=== PATIENT | male | born 1960 | race Caucasian/White ===

== ENCOUNTER 2023-12-07 12:31 | Inpatient (IN) | payer OTHER ==
[2023-12-07] MEDS ORDERED: NA CHLORIDE 0.9% 1,000 ML ONE ×2 (13:01→15:19)
[2023-12-07] MEDS ORDERED: NA CHLORIDE 0.9% 500 ML ONE (13:02)
[2023-12-07 13:18] LABS: Absolute Lymphocytes (CBC) 1.6 K/uL (0.7-4.9); Hematocrit 32.7 % (39.6-49.0); Lymphocytes % 18.3 % (15.3-44.8); MPV 7.6 fL (7.6-11.3); Platelets 178 thou/uL (152-406); Protime INR 1.29; RBC Red Blood Cell Count 3.67 M/uL (4.33-5.43)
--- NOTE | 2023-12-07 13:37 | RAD REPORT ---
EXAM DESCRIPTION: Mariam Single View12/07/2023 1:14 pm CLINICAL HISTORY: COUGH COMPARISON: No comparisons TECHNIQUE: Portable AP view of the chest. FINDINGS: The lungs are clear. Small calcified nodules bilaterally, suggestive of granulomas. No pn eumothorax or effusion. The cardiomediastinal contours are unremarkable. IMPRESSION: No acute cardiopulmonary process.
--- NOTE | 2023-12-07 13:42 | RAD REPORT ---
EXAM DESCRIPTION: RAD - Foot Left 3 View - 12/07/2023 1:14 pm CLINICAL HISTORY: Pain;Swelling COMPARISON: No comparisons TECHNIQUE: Left foot, 3 views. FINDINGS: No fracture, dislocation or periosteal reaction. Pronounced focal swelling along the lateral forefoot at the level of the metatarsophalangeal articula tion. Mild dorsal swelling as well. Vascular calcifications. No air or foreign body in the soft tissu es. IMPRESSION: Soft tissue swelling as above, without acute osseous abnormality.
[2023-12-07 13:43] LABS: Albumin 3.8 g/dL (3.4-5.0); Bilirubin Direct 0.2 mg/dL (0-0.2); Bilirubin Indirect, Calculated 0.3 mg/dL (0.2-0.8); Bilirubin Total 0.5 mg/dL (0.2-1.0); C-Reactive Protein 10.4 mg/L (<3.00); Magnesium 1.8 mg/dL (1.6-2.4); Protein, Total 8.5 g/dL (6.4-8.2); Troponin High Sensitivity 19.6 pg/mL (<58.9)
[2023-12-07] MEDS ORDERED: TDAP (DIPHTH,PERTUSS(ACELL),TET VAC) 0.5 ML VIAL IMVAC ONE (15:18)
[2023-12-07] MEDS ORDERED: VANCOMYCIN 1 GM/VIAL ONE (15:18)
[2023-12-07 15:19] LABS: Specific Gravity 1.015 (1.005-1.030); Urine Bacteria None Seen /HPF (<20); Urine Bilirubin NEGATIVE (Negative); Urine Blood Trace (Negative); Urine Clarity Clear (Clear); Urine Color Light-Yellow (Yellow); Urine Glucose NEGATIVE (Negative); Urine Mucus Slight /HPF (None Seen); Urine Protein 1+ (Negative); Urine RBC <5 /HPF (None Seen); Urine Urobilinogen Normal (Normal)
[2023-12-07] MEDS ORDERED: NA CHLORIDE 0.9% 250 ML ONE (15:19)
[2023-12-07] MEDS ORDERED: NA CHLORIDE 0.9% 100 ML ONE (15:19)
[2023-12-07] MEDS ORDERED: PIPERACIL/TAZO 3.375 GM VIAL IV ONE (15:19)
--- NOTE | 2023-12-07 15:27 | EDPHYS ---
Physician Documentation [facility] Name: Francisco Felton Age: 63 yrs Sex: Male : 1960 Arrival Date: 12/07/2023 Time: 12:31 Bed 18 Private MD: Ruthie Mcallister ED Physician Artur Paredes HPI: 12/07 15:07 This 63 yrs old Male presents to ER via Ambulatory with complaints of Wound doc Infection. 15:07 The patient presents with decreased range of motion, pain, that is acute. The doc complaints affect the left foot. Context: The problem was sustained at an unknown location. Onset: The symptoms/episode began/occurred 3 day(s) ago. Modifying factors: The symptoms are alleviated by nothing, the symptoms are aggravated by nothing. Associated signs and symptoms: Pertinent positives: swelling, warmth. Severity of symptoms: At their worst the symptoms were moderate, in the emergency department the symptoms are actually worse. Historical: - Allergies: 12:46 No Known Allergies; db - PMHx: 12:46 Diabetes mellitus; db - Immunization history:: Adult Immunizations unknown, Client reports having NOT received the Covid vaccine. - Social history:: Smoking status: Patient reports the use of cigarette tobacco products, smokes one-half pack cigarettes per day. - Family history:: not pertinent. ROS: 15:07 Constitutional: Negative for fever, chills, and weight loss, Eyes: Negative for injury, doc pain, redness, and discharge, ENT: Negative for injury, pain, and discharge, Neck: Negative for injury, pain, and swelling, Cardiovascular: Negative for chest pain, palpitations, and edema, Respiratory: Negative for shortness of breath, cough, wheezing, and pleuritic chest pain, Abdomen/GI: Negative for abdominal pain, nausea, vomiting, diarrhea, and constipation, Back: Negative for injury and pain, : Negative for injury, bleeding, discharge, and swelling, Neuro: Negative for headache, weakness, numbness, tingling, and seizure, Psych: Negative for depression, anxiety, suicide ideation, homicidal ideation, and hallucinations, Allergy/Immunology: Negative for hives, rash, and allergies, Endocrine: Negative for neck swelling, polydipsia, polyuria, polyphagia, and marked weight changes, Hematologic/Lymphatic: Negative for swollen nodes, abnormal bleeding, and unusual bruising, 15:07 MS/extremity: Positive for decreased range of motion, erythema, pain, swelling, tenderness, warmth, of the plantar aspect of left fifth toe, dorsum of left foot, left fourth toe and Left fifth toenail, Exam: 15:07 Constitutional: This is a well developed, well nourished patient who is awake, alert, doc and in no acute distress. Head/Face: Normocephalic, atraumatic. Eyes: Pupils equal round and reactive to light, extra-ocular motions intact. Lids and lashes normal. Conjunctiva and sclera are non-icteric and not injected. Cornea within normal limits. Periorbital areas with no swelling, redness, or edema. ENT: Nares patent. No nasal discharge, no septal abnormalities noted. Tympanic membranes are normal and external auditory canals are clear. Oropharynx with no redness, swelling, or masses, exudates, or evidence of obstruction, uvula midline. Mucous membranes moist. Neck: Trachea midline, no thyromegaly or masses palpated, and no cervical lymphadenopathy. Supple, full range of motion without nuchal rigidity, or vertebral point tenderness. No Meningismus. Chest/axilla: Normal chest wall appearance and motion. Nontender with no deformity. No lesions are appreciated. Cardiovascular: Regular rate and rhythm with a normal S1 and S2. No gallops, murmurs, or rubs. Normal PMI, no JVD. No pulse deficits. Respiratory: Lungs have equal breath sounds bilaterally, clear to auscultation and percussion. No rales, rhonchi or wheezes noted. No increased work of breathing, no retractions or nasal flaring. Abdomen/GI: Soft, non-tender, with normal bowel sounds. No distension or tympany. No guarding or rebound. No evidence of tenderness throughout. Back: No spinal tenderness. No costovertebral tenderness. Full range of motion. Male : Normal genitalia with no discharge or lesions. Skin: Warm, dry with normal turgor. Normal color with no rashes, no lesions, and no evidence of cellulitis. Neuro: Awake and alert, GCS 15, oriented to person, place, time, and situation. Cranial nerves II-XII grossly intact. Motor strength 5/5 in all extremities. Sensory grossly intact. Cerebellar exam normal. Normal gait. Psych: Awake, alert, with orientation to person, place and time. Behavior, mood, and affect are within normal limits. 15:07 Musculoskeletal/extremity: Extremities: grossly normal except: decreased ROM, erythema, pain, ROM: full active range of motion, full passive range of motion, Circulation is intact in all extremities. decreased sensation, Compartment Syndrome exam of affected extremity: is normal. Weight bearing: able to fully bear weight, without difficulty, DVT Exam: pain, swelling, tenderness, that is moderate, of the left foot, 15:28 ECG was reviewed by the Attending Physician. [facility] Vital Signs: 12:45 BP 187 / 86; Pulse 92; Resp 18; Temp 98.1; Pulse Ox 100% ; Weight 78.02 kg; Height 6 db ft. 6 in. ; 13:00 BP 156 / 85; Pulse 88; Resp 22; Pulse Ox 99% on R/A; me1 14:00 BP 175 / 86; Pulse 86; Resp 23; Pulse Ox 99% on R/A; me1 15:00 BP 143 / 58; Pulse 79; Resp 21; Pulse Ox 100% on R/A; me1 16:10 BP 181 / 88; Pulse 80; Resp 20; Temp 100; me1 17:00 BP 182 / 80; Pulse 81; Resp 22; Pulse Ox 100% on R/A; me1 18:00 BP 174 / 75; Pulse 94; Resp 20; Pulse Ox 100% on R/A; me1 12:45 Body Mass Index 19.88 (78.02 kg, 198.12 cm) db MDM: 12:48 Patient medically screened. [facility] 15:19 Differential diagnosis: fracture, penetrating trauma, arthritis, cellulitis. Data [facility] reviewed: vital signs, nurses notes, lab test result(s), radiologic studies, MRI, plain films. Consideration of Admission/Observation Patient was admitted/placed on observation. Escalation of care including admission/observation considered. I considered the following discharge prescriptions or medication management in the emergency department Medications were administered in the Emergency Department. See MAR. Independent interpretation of the following test(s) in the Emergency Department EKG: See my EKG interpretation above. Test considered but Not performed: Ultrasound no venous doppler. Historians other than the Patient: pt well informed. Care significantly affected by the following chronic conditions: Diabetes. 17:03 Counseling: I had a detailed discussion with the patient and/or guardian regarding the doc historical points, exam findings, and any diagnostic results supporting the discharge/admit diagnosis, lab results, radiology results, the need for further work-up and treatment in the hospital, mri no evidence of osteomyelitis. 12/07 12:50 Order name: Basic Metabolic Panel; Complete Time: 14:57 [facility] 12/07 12:50 Order name: CBC with Diff; Complete Time: 14:57 [facility] 12/07 12:50 Order name: LFT's; Complete Time: 14:57 [facility] 12/07 12:50 Order name: Magnesium; Complete Time: 14:57 [facility] 12/07 12:50 Order name: NT PRO-BNP; Complete Time: 14:57 [facility] 12/07 12:50 Order name: PT-INR; Complete Time: 14:57 [facility] 12/07 12:50 Order name: Troponin HS; Complete Time: 14:57 [facility] 12/07 12:50 Order name: Urinalysis w/ reflexes; Complete Time: 15:26 [facility] 12/07 12:50 Order name: CRP; Complete Time: 14:57 [facility] 12/07 13:00 Order name: Glucose, Ancillary Testing; Complete Time: 14:57 [facility] 12/07 15:07 Order name: Blood Culture Adult (2) [facility] 12/07 15:07 Order name: Lactate w/ 2H reflex if indic. [facility] 12/07 17:37 Order name: T4 Free EDID 12/07 17:37 Order name: Thyroid Stimulating Hormone EDID 12/07 17:37 Order name: Urinalysis w/ reflexes EDID 12/07 17:37 Order name: Basic Metabolic Panel EDID 12/07 17:37 Order name: Basic Metabolic Panel EDID 12/07 17:37 Order name: Basic Metabolic Panel EDMS 12/07 17:37 Order name: Basic Metabolic Panel EDMS 12/07 17:37 Order name: Basic Metabolic Panel EDMS 12/07 17:37 Order name: Basic Metabolic Panel EDMS 12/07 17:37 Order name: CBC with Automated Diff EDMS 12/07 17:37 Order name: CBC with Automated Diff EDMS 12/07 17:37 Order name: CBC with Automated Diff EDMS 12/07 17:37 Order name: CBC with Automated Diff EDMS 12/07 17:37 Order name: CBC with Automated Diff EDMS 12/07 17:37 Order name: CBC with Automated Diff EDMS 12/07 17:37 Order name: Hemoglobin A1c EDMS 12/07 17:37 Order name: Hemoglobin A1c EDMS 12/07 17:37 Order name: Lipid Profile EDMS 12/07 17:37 Order name: Lipid Profile EDMS 12/07 17:37 Order name: Magnesium EDMS 12/07 17:37 Order name: Magnesium EDMS 12/07 17:37 Order name: Magnesium EDMS 12/07 17:37 Order name: Magnesium EDMS 12/07 17:37 Order name: Magnesium EDMS 12/07 17:37 Order name: Magnesium EDMS 12/07 17:37 Order name: Phosphorus EDMS 12/07 17:37 Order name: Phosphorus EDMS 12/07 17:37 Order name: Phosphorus EDMS 12/07 17:37 Order name: Phosphorus EDMS 12/07 17:37 Order name: Phosphorus EDMS 12/07 17:37 Order name: Phosphorus EDMS 12/07 12:50 Order name: XRAY Chest (1 view); Complete Time: 14:57 [facility] 12/07 12:50 Order name: Foot Left 3 View XRAY; Complete Time: 14:57 [facility] 12/07 15:13 Order name: Foot Left Wo Cont EDMS 12/07 12:50 Order name: EKG; Complete Time: 12:51 [facility] 12/07 17:37 Order name: CONS Physician Consult EDID 12/07 12:50 Order name: Cardiac monitoring; Complete Time: 13:17 [facility] 12/07 12:50 Order name: EKG - Nurse/Tech; Complete Time: 13:17 [facility] 12/07 12:50 Order name: IV Saline Lock; Complete Time: 13:04 [facility] 12/07 12:50 Order name: Labs collected and sent; Complete Time: 13:04 [facility] 12/07 12:50 Order name: O2 Per Protocol; Complete Time: 13:04 [facility] 12/07 12:50 Order name: O2 Sat Monitoring; Complete Time: 13:04 [facility] 12/07 15:07 Order name: Wound Care; Complete Time: 16:39 [facility] EC:28 Rate is 87 beats/min. Rhythm is regular. QRS Hi Hat is Normal. WA interval is normal. QRS doc interval is normal. QT interval is normal. No Q waves. T waves are Normal. No ST changes noted. Clinical impression: NSR w/ Non-specific ST/T Changes and No evidence of ischemia. Interpreted by me. Reviewed by me. Administered Medications: 13:05 Drug: NS 0.9% IV 500 ml IV at bolus continuous Route: IV; Rate: bolus; Site: right mb9 forearm; 16:25 Follow up: IV Status: Completed infusion; IV Intake: 500ml me1 13:05 Drug: NS 0.9% IV 1000 ml IV at 125 ml/hr continuous Route: IV; Rate: 125 ml/hr; Site: mb9 right forearm; 17:42 Follow up: IV Status: Infusion continued upon admission me1 16:14 Drug: Tetanus Toxoid,Adsorbed IM 0.5 ml IM once; Provide Vaccine Information Statement me1 (VIS). {Senior Financial Accountant: [employer]; Exp: MonMar 28 2025; Lot #: [id number]; Series: 1 of ; Patient Consent: Obtained; Date/Time: ; Source Name: Francisco Felton; Source Relationship: Self; Address Information: [address], [facility] [address]; ; Education: Provided; VIS Presented Date: ; VIS Publication: Tetanus/Diphtheria/Pertussis (Tdap/Td) VIS 11/29/2011 (historic); Vaccine Funding Eligibility: Self pay} Route: IM; Site: right deltoid; 16:25 Follow up: Response: No adverse reaction me1 16:24 Drug: NS 0.9% IV 1000 ml IV at 1 bolus Per protocol; 1000 mL bolus Route: IV; Rate: 1 me1 bolus; Site: right forearm; 16:38 Drug: Piperacillin-Tazobactam IVPB 3.375 grams IVPB once over 60 mins; (mix in NS 100 me1 mL) Route: IVPB; Infused Over: 60 mins; Site: right forearm; 17:08 Follow up: IV Status: Completed infusion me1 17:05 Drug: vancoMYCIN IVPB 1 grams IVPB once over 2 hrs Route: IVPB; Infused Over: 2 hrs; me1 Site: right forearm; Point of Care Testing: Blood Glucose: 12:45 Blood Glucose: 77 mg/dL; db Ranges: Critical Glucose Levels:Adult <50 mg/dl or >400 mg/dl <40 mg/dl or >180 mg/dl Disposition Summary: 12/07/23 15:26 Hospitalization Ordered Notes: Hospitalization Status: Inpatient Admission doc Provider: Jane Manzanares cha Location: Telemetry/MedSurg (Inpatient) doc Condition: Fair doc Problem: new doc Symptoms: are unchanged doc Bed/Room Type: Standard doc Room Assignment: 222(12/07/23 17:31) as6 Diagnosis - Type 2 diabetes mellitus with diabetic neuropathy, unspecified doc - Personal history of diabetic foot ulcer doc - Diabetes mellitus due to underlying condition with foot ulcer doc - Cellulitis of other parts of limb - left foot , plantar doc Discharge Instructions: - Discharge Summary Sheet doc - Diabetic Neuropathy doc - Foot Pain doc Forms: - Medication Reconciliation Form doc - SBAR form doc - Leadership Thank You Letter doc Signatures: Dispatcher [employer] Artur Greer MD MD cha Slawson, Ashby RN RN as6 Ella Choudhury RN RN db Ester Lawler RN RN mb9 Paulette Da Silva RN RN me1 Corrections: (The following items were deleted from the chart) 17:31 15:26 doc as6
--- NOTE | 2023-12-07 15:27 | ER ---
Nurse's Notes [facility] Name: Francisco Felton Age: 63 yrs Sex: Male : 1960 Arrival Date: 12/07/2023 Time: 12:31 Bed 18 Private MD: Ruthie Mcallister Diagnosis: Type 2 diabetes mellitus with diabetic neuropathy, unspecified;Personal history of diabetic foot ulcer;Diabetes mellitus due to underlying condition with foot ulcer;Cellulitis of other parts of limb-left foot , plantar Presentation: 12/07 12:45 Chief complaint: Patient states: WOUND TO BOTTOM OF LEFT FOOT. STATES WAS SENT BY va1 PROVIDER DUE TO BLACK SPOT TO FOOT WITH WOUND. 12:45 Coronavirus screen: Client denies travel out of the [place] in the last 14 days. At this db time, the client does not indicate any symptoms associated with coronavirus-19. Ebola Screen: Patient negative for fever greater than or equal to 101.5 degrees Fahrenheit, and additional compatible Ebola Virus Disease symptoms Patient denies exposure to infectious person. Patient denies travel to an Ebola-affected area in the 21 days before illness onset. No symptoms or risks identified at this time. Initial Sepsis Screen: Does the patient meet any 2 criteria? No. Patient's initial sepsis screen is negative. Does the patient have a suspected source of infection? No. Patient's initial sepsis screen is negative. Risk Assessment: Do you want to hurt yourself or someone else? Patient reports no desire to harm self or others. Onset of symptoms was December 07, 2023. 12:45 Method Of Arrival: Ambulatory db 12:45 Acuity: NESHA 3 db Triage Assessment: 12:46 General: Appears in no apparent distress. comfortable, Behavior is calm, cooperative. db Pain: Complains of pain in left foot. Historical: - Allergies: 12:46 No Known Allergies; db - PMHx: 12:46 Diabetes mellitus; db Historical Immunization: - Administered Vaccines 17:05 vancoMYCIN IVPB 1 grams me1 16:38 Piperacillin-Tazobactam IVPB 3.375 grams me1 16:24 NS 0.9% IV 1000 ml me1 16:14 Tetanus Toxoid,Adsorbed IM 0.5 ml me1 Acute Care Surgeon: [employer] Exp: MonMar 28 2025; Lot #: [id number]; Series: 1 of 1; Patient Consent: Obtained; Date/Time: ; Source Name: Francisco Felton; Source Relationship: Self; Address Information: [address] [address]; ; Education: Provided; VIS Presented Date: ; VIS Publication: Tetanus/Diphtheria/Pertussis (Tdap/Td) VIS 11/29/2011 (historic); Vaccine Funding Eligibility: Self pay 13:05 NS 0.9% IV 500 ml mb9 13:05 NS 0.9% IV 1000 ml mb9 - Immunization history:: Adult Immunizations unknown, Client reports having NOT received the Covid vaccine. - Social history:: Smoking status: Patient reports the use of cigarette tobacco products, smokes one-half pack cigarettes per day. - Family history:: not pertinent. Screenin:42 [facility] ED Fall Risk Assessment (Adult) History of falling in the last 3 months, me1 including since admission No falls in past 3 months (0 pts) Confusion or Disorientation No (0 pts) Intoxicated or Sedated No (0 pts) Impaired Gait No (0 pts) Mobility Assist Device Used No (0 pt) Altered Elimination No (0 pt) Score/Fall Risk Level 0 - 2 = Low Risk Maintained a safe environment, Provided non-skid footwear, Hourly rounding (assess needs \T\ fall precautionary measures) done. Abuse screen: Denies threats or abuse. Nutritional screening: No deficits noted. Tuberculosis screening: No symptoms or risk factors identified. Assessment: 12:45 General: Appears comfortable, well groomed, well developed, well nourished, Behavior is me1 calm, cooperative, appropriate for age, Reports. 14:42 General: Reports Sent by provider for wound to bottom of left foot. States he noticed me1 the wound about 2 weeks ago but the callus just came off and he is concerned about the wound. Pain: Denies pain. Neuro: Level of Consciousness is awake, alert, obeys commands, Oriented to person, place, time, situation, Appropriate for age. Cardiovascular: Capillary refill < 3 seconds Patient's skin is warm and dry. Respiratory: Airway is patent Respiratory effort is even, unlabored, Respiratory pattern is regular, symmetrical. Derm: Reports Sent by provider for wound to bottom of left foot. States he noticed the wound about 2 weeks ago but the callus just came off and he is concerned about the wound. 15:22 General: pt taken to MRI . me1 Vital Signs: 12:45 BP 187 / 86; Pulse 92; Resp 18; Temp 98.1; Pulse Ox 100% ; Weight 78.02 kg; Height 6 db ft. 6 in. ; 13:00 BP 156 / 85; Pulse 88; Resp 22; Pulse Ox 99% on R/A; me1 14:00 BP 175 / 86; Pulse 86; Resp 23; Pulse Ox 99% on R/A; me1 15:00 BP 143 / 58; Pulse 79; Resp 21; Pulse Ox 100% on R/A; me1 16:10 BP 181 / 88; Pulse 80; Resp 20; Temp 100; me1 17:00 BP 182 / 80; Pulse 81; Resp 22; Pulse Ox 100% on R/A; me1 18:00 BP 174 / 75; Pulse 94; Resp 20; Pulse Ox 100% on R/A; me1 12:45 Body Mass Index 19.88 (78.02 kg, 198.12 cm) db ED Course: 12:33 Patient arrived in ED. rg4 12:33 Ruthie Mcallister DO is Private Physician. rg4 12:46 Triage completed. db 12:46 Arm band placed on. db 12:48 Artur Paredes MD is Attending Physician. [facility] 12:50 Paulette Da Silva, IVY is Primary Nurse. me1 13:04 Inserted saline lock: 20 gauge in right forearm, using aseptic technique. me1 13:04 Basic Metabolic Panel Sent. me1 13:04 CBC with Diff Sent. me1 13:04 LFT's Sent. me1 13:04 Magnesium Sent. me1 13:04 NT PRO-BNP Sent. me1 13:04 PT-INR Sent. me1 13:04 Troponin HS Sent. me1 13:04 CRP Sent. me1 13:16 XRAY Chest (1 view) In Process Unspecified. EDMS 13:16 Foot Left 3 View XRAY In Process Unspecified. EDMS 14:42 Patient has correct armband on for positive identification. Bed in low position. Call me1 light in reach. Side rails up X2. Provided Education on: POC. Verbalized understanding. . 14:42 No provider procedures requiring assistance completed. me1 14:47 Urinalysis w/ reflexes Sent. me1 15:23 Jane Manzanares MD is Hospitalizing Provider. doc 15:44 Foot Left Wo Cont In Process Unspecified. EDMS 16:39 Blood Culture Adult (2) Sent. me1 17:53 Patient admitted, IV remains in place. me1 Administered Medications: 13:05 Drug: NS 0.9% IV 500 ml IV at bolus continuous Route: IV; Rate: bolus; Site: right mb9 forearm; 16:25 Follow up: IV Status: Completed infusion; IV Intake: 500ml me1 13:05 Drug: NS 0.9% IV 1000 ml IV at 125 ml/hr continuous Route: IV; Rate: 125 ml/hr; Site: mb9 right forearm; 17:42 Follow up: IV Status: Infusion continued upon admission me1 16:14 Drug: Tetanus Toxoid,Adsorbed IM 0.5 ml IM once; Provide Vaccine Information Statement [facility] ([place]). {Acute Care Surgeon: [employer] Exp: MonMar 28 2025; Lot #: [id number]; Series: 1 of 1; Patient Consent: Obtained; Date/Time: ; Source Name: Francisco Felton; Source Relationship: Self; Address Information: [address] [address]; ; Education: Provided; VIS Presented Date: ; VIS Publication: Tetanus/Diphtheria/Pertussis (Tdap/Td) VIS 11/29/2011 (historic); Vaccine Funding Eligibility: Self pay} Route: IM; Site: right deltoid; 16:25 Follow up: Response: No adverse reaction me1 16:24 Drug: NS 0.9% IV 1000 ml IV at 1 bolus Per protocol; 1000 mL bolus Route: IV; Rate: 1 me1 bolus; Site: right forearm; 16:38 Drug: Piperacillin-Tazobactam IVPB 3.375 grams IVPB once over 60 mins; (mix in NS 100 me1 mL) Route: IVPB; Infused Over: 60 mins; Site: right forearm; 17:08 Follow up: IV Status: Completed infusion me1 17:05 Drug: vancoMYCIN IVPB 1 grams IVPB once over 2 hrs Route: IVPB; Infused Over: 2 hrs; [facility] Site: right forearm; Medication: 14:42 VIS not applicable for this client. [facility] Point of Care Testing: Blood Glucose: 12:45 Blood Glucose: 77 mg/dL; db Ranges: Intake: 16:25 IV: 500ml; Total: 500ml. [facility] Outcome: 15:26 Decision to Hospitalize by Provider. doc 17:52 Admitted to Med/surg accompanied by tech, via wheelchair, room 222, with chart, Report me1 called to IVY Sher 17:52 Condition: stable 17:52 Instructed on the need for admit, 18:07 Patient left the ED. mb9 Signatures: Dispatcher [employer] Artur Greer MD MD cha Garcia, Rubi rg4 Ella Choudhury, RN RN db Ester Lawler RN RN mb9 Paulette Da Silva, RN RN va1 Corrections: (The following items were deleted from the chart) 14:40 12:45 Chief complaint: Patient states: WOUND TO BOTTOM OF LEFT FOOT. STATES WAS SENT BY [facility] PROVIDER DUE TO BLACK SPOT TO FOOT WITH WOUND db
--- NOTE | 2023-12-07 16:56 | RAD REPORT ---
EXAM DESCRIPTION: MRI - Foot Left Wo Cont - 12/07/2023 3:55 pm CLINICAL HISTORY: infection COMPARISON: Foot Left 3 View dated 12/07/2023 TECHNIQUE: Multiplanar multisequence MRI of the left foot, obtained without IV contrast. FINDINGS: Skin defect along the plantar aspect of the lateral forefoot at the level of the fifth met atarsal head, with underlying soft tissue T2 signal hyperintensity, but no discrete gas opacified tra ct. Bone marrow signal is unremarkable throughout, without evidence of acute fracture, or signal abnormal ity to suggest ongoing osteomyelitis. Fatty atrophy and replacement of the deep muscles of the foot, in particular along the lateral aspect . Plantar aponeurosis appears intact. To the extent evaluated, the long extensor and flexor tendons a ppear intact. The visualized aspects of the medial and lateral ligamentous structures are unremarkabl e. Moderate subcutaneous soft tissue swelling along the dorsum of the forefoot. IMPRESSION: Soft tissue abnormalities as detailed above, without MRI findings to suggest ongoing ost eomyelitis.
[2023-12-07] MEDS ORDERED: MORPHINE 2 MG/ML SYR IV PRN (17:27)
[2023-12-07] MEDS ORDERED: ALBUTEROL 2.5 MG/3 ML NEB SOL NEB PRN (17:27)
[2023-12-07] MEDS ORDERED: ACETAMINOPHEN 500 MG TAB PO PRN (17:27)
--- NOTE | 2023-12-07 17:42 | P.HP ---
Certification for Inpatient Patient admitted to: Inpatient With expected LOS: <2 Midnights Patient will require the following post-hospital care: None Practitioner: I am a practitioner with admitting privileges, knowledge of patient current condition, hospital course, and medical plan of care. Services: Services provided to patient in accordance with Admission requirements found in Title 42 Section 412.3 of the Code of Federal Regulations <Jesús Garciachris - Last Filed: 12/07/23 17:51> Patient History Date of Service: 12/07/23 Reason for admission: Diabetic foot ulcer left, diabetic neuropathy History of Present Illness: Mr. Felton is a 63-year-old male patient with a history of diabetes [id number] presented to ER via ambulatory with complaints of wound infection. Patient reports that he noted to have pain on the left foot 3 days ago, patient developed wound on the plantar aspect of the left foot from a calus, mild to moderate pain, noted warmth redness and tenderness. Wound is leaking purulent drainage, black wound bed. Patient denies fever chills, patient denies chest pain or shortness of breath. No aggravating or relieving factors. ED course Vital signs blood pressure 187 over over 86, pulse 92, pulse respiration 18, temperature 98.1, pulse ox 100%, weight 78. 02 kg height is 6.6H EKG showing sinus rhythm with LVH Initial laboratory evaluation CBC is unremarkable, BMP is showing mildly elevated BUN 23 and creatinine 1.13, elevated BNP 496, normal troponin, elevated CRP 10.4.Chest x-ray is normal. Admitted the patient with a diagnosis of diabetic foot ulcer, diabetic neuropathy, and foot pain. - Past Medical/Surgical History -: Type II DMNIDDM -: Diabetic neuropathy -: Current everyday smoker -: Left knee surgery Psychosocial/ Personal History: Lives at home with spouse - Social History Smoking Status: Light Tobacco smoker (1-9 cigarettes/day) Counseled patient to stop smoking for: less than 10 minutes Smoking therapy provided: Yes Patient receptive to therapy: Yes Alcohol use: No CD- Drugs: No Caffeine use: Yes Place of Residence: Home <GarciaDiana bourne - Last Filed: 12/07/23 17:51> Date of Service: 12/08/23 <Jane Manzanares - Last Filed: 12/08/23 07:20> Allergies No Known Allergies Allergy (Unverified 12/07/23 15:09) Home Medications: Metformin HCl [Glucophage] 500 mg PO BIDWM 12/07/23 Review of Systems 10-point ROS is otherwise unremarkable <Diana Garcia - Last Filed: 12/07/23 17:51> Physical Examination - Physical Exam General: Alert, Oriented x3 HEENT: Atraumatic, Normocephalic Neck: Supple, 2+ carotid pulse no bruit Respiratory: Clear to auscultation bilaterally, Normal air movement, Other (Increased AP diameter) Cardiovascular: No edema, Normal pulses, Regular rate/rhythm Capillary refill: <2 Seconds Gastrointestinal: Normal bowel sounds, Soft and benign, Non-distended Musculoskeletal: No clubbing, No swelling, Other (Diabetic ulcer on sole of the left foot) Integumentary: No rashes, Other (Diabetic ulcer on the left foot) Neurological: Normal speech, Normal tone, Normal affect - Studies Laboratory Data (last 24 hrs) 12/07/23 12/07/23 12/07/23 13:02 13:02 13:02 WBC 9.00 Hgb 11.4 L Hct 32.7 L Plt Count 178 PT 14.1 H INR 1.29 Sodium 138 Potassium 4.0 BUN 23 H Creatinine 1.13 Glucose 117 H Magnesium 1.8 Total Bilirubin 0.5 AST 27 ALT 36 Alkaline Phosphatase 75 <Diana Garcia - Last Filed: 12/07/23 17:51> - Studies Laboratory Data (last 24 hrs) 12/07/23 12/07/23 12/07/23 13:02 13:02 13:02 WBC 9.00 Hgb 11.4 L Hct 32.7 L Plt Count 178 PT 14.1 H INR 1.29 Sodium 138 Potassium 4.0 BUN 23 H Creatinine 1.13 Glucose 117 H Magnesium 1.8 Total Bilirubin 0.5 AST 27 ALT 36 Alkaline Phosphatase 75 <Jane Manzanares - Last Filed: 12/08/23 07:20> Assessment and Plan - Problems (Diagnosis) (1) Type 2 diabetes mellitus Current Visit: Yes Status: Acute Qualifiers: Diabetes mellitus retirement insulin use: without retirement use Diabetes mellitus complication status: with diabetic arthropathy Diabetes mellitus complication detail: with neuropathic arthropathy Qualified Code(s): E11.610 - Type 2 diabetes mellitus with diabetic neuropathic arthropathy (2) Diabetic foot ulcer associated with secondary diabetes mellitus Current Visit: Yes Status: Chronic Qualifiers: Laterality: left Non-pressure ulcer stage: with necrosis of muscle (3) Diabetic neuropathy Current Visit: Yes Status: Chronic Qualifiers: Diabetes mellitus type: type 2 Diabetes mellitus complication detail: diabetic polyneuropathy Qualified Code(s): E11.42 - Type 2 diabetes mellitus with diabetic polyneuropathy (4) Cigarette nicotine dependence Current Visit: Yes Status: Chronic Qualifiers: Substance use status: unspecified nicotine-induced disorder Qualified Code(s): F17.219 - Nicotine dependence, cigarettes, with unspecified nicotine- induced disorders - Plan Diabetic foot ulcer Diabetic neuropathy Type 2 diabetes Foot pain Hypertension * patient with a history of diabetes fiz-yxwdept-lylawbbgs with complaints of wound infection. The wound was quarter size with a black wound bed with purulent drainage with a mild pain and erythema extending upwards. Pedal pulses felt. * Wound care daily * Admitted the patient, IV fluid, culture , IV antibiotics started, analgesics as needed, surgery consulted Dr. Mcallister * Will check A1c NHS with a sliding scale of regular insulin * Hypoglycemic precautions * Monitor electrolytes and replete * Reconcile resume home medication as appropriate * Monitor vital signs closely * DVT prophylaxis with Lovenox * Full code * Diabetic diet Discharge Plan: Home Plan to discharge in: 48 Hours - Advance Directives Does patient have a Living Will: Yes Does patient have a Durable POA for Healthcare: No - Code Status/Comfort Care Code Status Assessed: Yes (Full code) Code Status: Full Code Physician Review: Patient Assessed, Agree with Above Assessment and Plan Critical Care: No Time Spent Managing Pts Care (In Minutes): 55 ( minutes) <Diana Garcia - Last Filed: 12/07/23 17:51> - Plan Pt seen and examined. I agree with the note by the CHAR DUST CLEANER AND SALVAGER. Pt is a 63 yo male with DM II who presents with left foot wound. Pt reports that he noticed it 3 days ago and it progressively worsened which made pt to come to the ER for evaluation. On admission, lab studies show WBC 9, Hgb 11.4, NA 138, K 4.0, Cr 1.13, CRP 10.4, and BNP 496. X-ray of the foot is negative for bone infection. MRI foot is pending. At bedside, pt is in NAD. A/P: Left foot diabetic foot infection: Will continue iv vanc and zosyn. X-ray of the foot is negative for osteomyelitis. Will follow up MRI left foot. Consulted Gen surgery for possible debridement. Follow up wound cx. DMII: Continue accuchek, SSI and ADA diet. DVT ppx: SCD Code: full <Jane Manzanares - Last Filed: 12/08/23 07:20>
[2023-12-07] MEDS ORDERED: VANCOMYCIN 1 GM in NA CHLORIDE 0.9% 250 ML IVPB SCH (18:00)
[2023-12-07 18:21] VITALS: BMI 19.8
[2023-12-07 19:13] LABS: Thyroid Stimulating Hormone 3.6 uIU/mL (0.358-3.740)
[2023-12-07] MEDS ORDERED: VANCOMYCIN 500 MG in NA CHLORIDE 0.9% 100 ML IVPB ONE (20:00)
[2023-12-07] MEDS: NA CHLORIDE 0.9% 1,000 ML IV SCH (20:35)
[2023-12-08] MEDS: PIPER TAZO 3.375 GM in NA CHLORIDE 0.9% 100 ML IV SCH ×4 (00:02→23:38)
[2023-12-08 05:29] LABS: Absolute Lymphocytes (CBC) 1.2 K/uL (0.7-4.9); Hematocrit 28.8 % (39.6-49.0); Lymphocytes % 17.3 % (15.3-44.8); MCV 87.9 fL (80-100); MPV 7.4 fL (7.6-11.3); Platelets 173 thou/uL (152-406); RBC Red Blood Cell Count 3.28 M/uL (4.33-5.43)
[2023-12-08 05:39] LABS: Magnesium 1.7 mg/dL (1.6-2.4); Phosphorus 3.7 mg/dL (2.5-4.9); Potassium 4.1 mEq/L (3.5-5.1)
[2023-12-08] MEDS: NA CHLORIDE 0.9% 1,000 ML IV SCH ×2 (07:20→20:28)
[2023-12-08] MEDS: ENOXAPARIN 40 MG/0.4 ML SQ SCH (09:00)
[2023-12-08] MEDS ORDERED: BUPIVACAINE 0.5% PF 10 ML VIAL ONE (10:38)
--- NOTE | 2023-12-08 10:54 | P.CNS ---
Date of Consult: 12/08/23 Reason for consult: Left foot infection History of present illness: Patient is a 63-year-old gentleman who came to the emergency room last night with an infection of his left foot the last 3 days. Patient complains of redness warmth and a Infected callus on the left foot at the base of the fifth metatarsal head. Patient states that he wears work boots which has caused this callus. Patient has neuropathy and has minimal feeling. Patient saw his primary care physician and she advised him to go to the emergency room for evaluation and treatment. Patient denies any sore throat, runny nose, cough, headache, dizziness, chest pain, fever or chills. Patient does have some foul-smelling discharge from the wound. Patient also complains of upper abdominal pain. Review of systems: Otherwise unremarkable Past medical history: Type 2 diabetes and diabetic neuropathy Past surgical history: Left knee surgery Allergies: None Social history: Patient does smoke and has been counseled and drinks occasionally Family history: Noncontributory Vital signs: Stable, afebrile Physical exam: Awake, alert and oriented x 3 Head and neck exam: No masses Chest: Clear Heart: S1-S2 Abdomen: Soft, nondistended, positive bowel sounds and minimal tenderness with muscular tightness in the upper abdomen. No evidence of peritonitis. Extremity: Diminished dorsalis pedis and posterior tibial pulses. On the plantar aspect of the left foot near the fifth metatarsal head there is approximately a 3 x 4 cm area of a callus with foul odor, black and necrotic tissue. It appears that there is fluid trapped underneath the callus. There is warmth, redness and tenderness on the left lateral dorsal foot. Neuro: Diminished sensation in the foot Diagnostic data: White count is normal, chemistry reviewed, x-ray and MRI reviewed. There is no evidence of osteomyelitis on the MRI. Assessment: Infected wound left foot in a diabetic patient Plan/recommendation: N.p.o., IVF antibiotics and to the OR for debridement of infected wound on the left foot. Patient understands risk, benefits and alternatives and agrees to procedure. We will get arterial Doppler to evaluate his vascular status after surgery as well as a CT of the abdomen pelvis to assess his abdominal pain and tenderness. CC:
[2023-12-08] MEDS ORDERED: MAGNESIUM SULFATE 1 gm IVPB 1 GM/100 ML BAG IV ONE ×2 (11:00→21:00)
[2023-12-08] MEDS ORDERED: LIDOCAINE 1% MPF 5 ML VIAL ONE (11:07)
[2023-12-08] MEDS ORDERED: MIDAZOLAM HCL 2 MG/2 ML INJ ONE (11:07)
[2023-12-08] MEDS ORDERED: propofoL 200 MG/20 ML VIAL IV ONE (11:07)
[2023-12-08] MEDS ORDERED: FENTANYL CITR 100 MCG/2 ML ONE (11:07)
[2023-12-08] MEDS ORDERED: KETOROLAC 30 MG/ML INJ ONE (11:27)
[2023-12-08] MEDS ORDERED: dexAMETHasone 4 MG/ML VIAL ONE (11:28)
[2023-12-08] MEDS ORDERED: ONDANSETRON 4 MG/2 ML VIAL ONE (11:28)
[2023-12-08] MEDS ORDERED: COLLAGENASE 30 GM OINTMENT TOP ONE (11:31)
--- NOTE | 2023-12-08 11:44 | P.OP ---
Date of Service: 12/08/23 Preop diagnosis: Left foot diabetic infection on the plantar surface at the base of the fifth metatarsal head Postop diagnosis: Same Procedure performed: Excisional debridement of infected wound of the left fifth metatarsal head on the plantar surface to subcutaneous tissue approximately 3 x 4 cm Surgeon: Bala Mcallister MD Slitting And Shipping Supervisor: None Estimated blood loss: Minimal Specimen: Infected tissue for culture Findings: As above Anesthesia: General Complications: None Drains: None Fluids and blood products: Nonapplicable Disposition: Recovery room Operative note: Patient brought to the OR and placed in supine position. General anesthesia begun. Patient prepped and draped in the usual sterile fashion. Sharp dissection around the callus performed. This involved an area approximately 3 x 4 cm. All necrotic tissue debrided and infected tissue removed. Infected tissue sent for culture. There was minimal pus associated with it. Dissection proceeded until good viable tissue was identified. Wound irrigated and bleeding controlled with cautery. Collagenase wet-to-dry normal saline dressing change applied. Patient awakened and taken to recovery room in good general condition. CC:
[2023-12-08] MEDS ORDERED: HYDROCODONE/APAP 7.5/325 MG TAB PO PRN (12:07)
[2023-12-08] MEDS ORDERED: HYDROMORPHONE HCL 1 MG/ML INJ IV PRN (12:07)
[2023-12-08] MEDS ORDERED: DOCUSATE NA 100 MG CAP PO PRN (12:07)
[2023-12-08] MEDS ORDERED: ALBUTEROL 2.5 MG/3 ML NEB SOL NEB PRN (12:11)
[2023-12-08] MEDS ORDERED: NA CHLORIDE 0.9% 1,000 ML ONE (12:20)
--- NOTE | 2023-12-08 14:41 | P.PN ---
Subjective Date of Service: 12/08/23 Chief Complaint: Diabetic foot ulcer left, diabetic neuropathy Subjective: No new changes, Improving, Doing well Patient is alert and oriented x 3 Resting in the bed NAD, Denies any pain or shortness of breath Vital stable <Diana Garcia - Last Filed: 12/08/23 14:37> Date of Service: 12/08/23 <Jane Manzanares Isela - Last Filed: 12/08/23 17:59> Review of Systems 10-point ROS is otherwise unremarkable <Diana Garcia - Last Filed: 12/08/23 14:37> Physical Examination - Vital Signs Temperature: 97.0 F Blood Pressure: 134/66 Pulse: 68 Respirations: 16 Pulse Ox (%): 99 - Physical Exam General: Alert, Oriented x3 HEENT: Atraumatic, Normocephalic Neck: Supple, 2+ carotid pulse no bruit Respiratory: Clear to auscultation bilaterally, Normal air movement Cardiovascular: No edema, Normal pulses Capillary refill: <2 Seconds Gastrointestinal: Normal bowel sounds, Soft and benign Musculoskeletal: No swelling, No contractures Integumentary: Other (Left foot diabetic ulcer) Neurological: Normal speech, Normal tone, Normal affect <Diana Garcia - Last Filed: 12/08/23 14:37> Assessment And Plan - Current Problems (Diagnosis) (1) Type 2 diabetes mellitus Current Visit: Yes Status: Acute Qualifiers: Diabetes mellitus manager terminal insulin use: without manager terminal use Diabetes mellitus complication status: with diabetic arthropathy Diabetes mellitus complication detail: with neuropathic arthropathy Qualified Code(s): E11.610 - Type 2 diabetes mellitus with diabetic neuropathic arthropathy (2) Diabetic foot ulcer associated with secondary diabetes mellitus Current Visit: Yes Status: Chronic Qualifiers: Laterality: left Non-pressure ulcer stage: with necrosis of muscle (3) Diabetic neuropathy Current Visit: Yes Status: Chronic Qualifiers: Diabetes mellitus type: type 2 Diabetes mellitus complication detail: diabetic polyneuropathy Qualified Code(s): E11.42 - Type 2 diabetes mellitus with diabetic polyneuropathy (4) Cigarette nicotine dependence Current Visit: Yes Status: Chronic Qualifiers: Substance use status: unspecified nicotine-induced disorder Qualified Code(s): F17.219 - Nicotine dependence, cigarettes, with unspecified nicotine- induced disorders - Plan Diabetic foot ulcer Diabetic neuropathy Type 2 diabetes Foot pain Hypertension * patient with a history of diabetes nzs-oplnugl-ennhyxuzh with complaints of wound infection. The wound was quarter size with a black wound bed with purulent drainage with a mild pain and erythema extending upwards. Pedal pulses felt. * -S/p incision and debridement of necrotic tissue by Dr. Mcallister 12/08/23 * Wound care daily * AContinue IV fluid, culture , IV antibiotics started, analgesics as needed, surgery consulted Dr. Mcallister * Will check A1c NHS with a sliding scale of regular insulin * Hypoglycemic precautions * Monitor electrolytes and replete * Reconcile resume home medication as appropriate * Monitor vital signs closely * DVT prophylaxis with Lovenox * Full code * Diabetic diet Physician Review: Patient Assessed, Agree with Above Assessment and Plan <Diana Garcia - Last Filed: 12/08/23 14:37> - Plan Pt seen and examined. I agree with the note by the BOX BLANK MACHINE FEEDER. Continue Iv abx. S/p I&D. <Jane Manzanares - Last Filed: 12/08/23 17:59>
--- NOTE | 2023-12-08 14:45 | RAD REPORT ---
EXAM DESCRIPTION: CT - Abdomen Pelvis W Contrast - 12/08/2023 2:30 pm CLINICAL HISTORY: Abdominal pain COMPARISON: none. TECHNIQUE: Computed axial tomography of the abdomen pelvis was obtained. 100 cc Isovue-300 was admin istered intravenously. Oral contrast was given All CT scans are performed using dose optimization technique as appropriate and may include automated exposure control or mA/KV adjustment according to patient size. FINDINGS: Liver, pancreas and adrenals are unremarkable. Small bilateral renal cysts Spleen 14 centimeters. Prominence of the portal vein and splenic vein. No thrombus is noted. Mild splenomegaly. Mild posterior subluxation of L4 on L5 and L5 on S1 There is no evidence of diverticulitis. Normal appendix Moderate amount stool within the colon IMPRESSION: Mild splenomegaly Moderate stool within the colon
[2023-12-08] MEDS ORDERED: VANCOMYCIN 1.5 GM in NA CHLORIDE 0.9% 500 ML IVPB SCH (18:00)
[2023-12-08] MEDS ORDERED: MELATONIN 5 MG TABLET PO ONE (21:30)
[2023-12-09 04:22] LABS: Absolute Lymphocytes (CBC) 0.8 K/uL (0.7-4.9); Hematocrit 27.4 % (39.6-49.0); Lymphocytes % 14.1 % (15.3-44.8); MCV 87.4 fL (80-100); MPV 8.2 fL (7.6-11.3); Platelets 147 thou/uL (152-406); RBC Red Blood Cell Count 3.14 M/uL (4.33-5.43)
[2023-12-09 04:44] LABS: Magnesium 2.2 mg/dL (1.6-2.4); Phosphorus 3.6 mg/dL (2.5-4.9); Potassium 4.4 mEq/L (3.5-5.1)
[2023-12-09] MEDS: NA CHLORIDE 0.9% 1,000 ML IV SCH (05:23)
[2023-12-09] MEDS ORDERED: POLYETHYL GLY 3350 17 GM/DOSE PO PRN (07:28)
--- NOTE | 2023-12-09 08:58 | P.PN ---
Subjective Date of Service: 12/09/23 Chief Complaint: Diabetic foot ulcer left, diabetic neuropathy Pt is resting comfortably in bed. S/p I&D. Pt denies any fever or chills but reports mild pain. He is eager to go home. No complaints. Review of Systems Unremarkable General: Unremarkable Eyes: Unremarkable ENT: Unremarkable Respiratory: Unremarkable Cardiovascular: Unremarkable Gastrointestinal: Unremarkable Genitourinary: Unremarkable Musculoskeletal: Unremarkable Integumentary: Lesions, Unremarkable Neurological: Unremarkable Lymphatics: Unremarkable Physical Examination - Vital Signs Temperature: 97.0 F Blood Pressure: 158/69 Pulse: 66 Respirations: 14 Pulse Ox (%): 99 - Physical Exam General: Alert, In no apparent distress, Oriented x3 HEENT: Atraumatic, Normocephalic, PERRLA Neck: Supple, 2+ carotid pulse no bruit Respiratory: Clear to auscultation bilaterally, Normal air movement Cardiovascular: No edema, Normal pulses, Regular rate/rhythm, Normal S1 S2 Capillary refill: <2 Seconds Gastrointestinal: Normal bowel sounds, Soft and benign, Non-distended Musculoskeletal: No clubbing, No swelling Integumentary: No rashes, No breakdown, Pressure ulcer (Under the left 5th digit.) Neurological: Normal speech, Normal strength at 5/5 x4 extr, Normal tone, Sensation intact, Cranial nerves 3-12 intact Lymphatics: No axilla or inguinal lymphadenopathy Assessment And Plan - Plan Left foot diabetic foot infection: Will continue iv vanc and zosyn. X-ray of the foot is negative for osteomyelitis. MRI left foot is negative for osteomyelitis. Gen surgery did I&D on 12/08/23. POD #1. Pt is eager to go home. Follow up wound cx. DM II: Continue accuchek, SSI and ADA diet. Abd pain: Due to constipation. CT abd shows mild splenomegaly and stool in the colon. Will continue miralax. Anemia: Hgb is 9.7. Will monitor H/H. transfuse when Hgb <7. DVT ppx: SCD Code: full Dispo: Will dc once cleared by Gen surgery. Physician Review: Patient Assessed, Agree with Above Assessment and Plan
[2023-12-09] MEDS: ENOXAPARIN 40 MG/0.4 ML SQ SCH (09:00)
--- NOTE | 2023-12-09 10:02 | P.DS ---
Admission Date: 12/07/23 Discharge Date: 12/09/23 Disposition: ROUTINE DISCHARGE Discharge Condition: GOOD Reason for Admission: Diabetic foot ulcer left, diabetic neuropathy Brief History of Present Illness: Mr. Felton is a 63-year-old male patient with a history of diabetes juv-yqzjuaw-schpanhrw presented to ER via ambulatory with complaints of wound infection. Patient reports that he noted to have pain on the left foot 3 days ago, patient developed wound on the plantar aspect of the left foot from a calus, mild to moderate pain, noted warmth redness and tenderness. Wound is leaking purulent drainage, black wound bed. Patient denies fever chills, patient denies chest pain or shortness of breath. No aggravating or relieving factors. ED course Vital signs blood pressure 187 over over 86, pulse 92, pulse respiration 18, temperature 98.1, pulse ox 100%, weight 78. 02 kg height is 6.6H EKG showing sinus rhythm with LVH Initial laboratory evaluation CBC is unremarkable, BMP is showing mildly elevated BUN 23 and creatinine 1.13, elevated BNP 496, normal troponin, elevated CRP 10.4.Chest x-ray is normal. Admitted the patient with a diagnosis of diabetic foot ulcer, diabetic neuropathy, and foot pain. Hospital Course: Pt is a 63 yo male with past medical history of DM II who presented with left foot wound. Pt noticed it 3 days before the this admission. It progressively worsened which made pt to come to the ER for evaluation. On admission, lab studies showed WBC 9, Hgb 11.4, NA 138, K 4.0, Cr 1.13, CRP 10.4, and BNP 496. X-ray of the foot was negative for bone infection. MRI foot was negative for osteomyelitis. We continue iv van and zosyn and consulted Gen surgery for wound debridement. Gen surgery took pt to the OR for I&D. Pt did well post-op and Gen surgery cleared him for discharge with Augmentin 875/125mg po BID for 10 days. Pt was advised to follow up with Dr. Mcallister in clinic for result of wound culture. We continue insulin and ADA diet for diabetes. Pt was in NAD prior to discharge. Vital Signs/Physical Exam: Temp Pulse Resp BP Pulse Ox 97.0 F 66 14 158/69 H 99 12/09/23 09:00 12/09/23 09:00 12/09/23 09:00 12/09/23 09:00 12/09/23 09:00 Laboratory Data at Discharge: WBC 6.00 thou/uL (4.3-10.9) 12/09/23 03:03 Hgb 9.7 g/dL (13.6-17.9) L 12/09/23 03:03 Hct 27.4 % (39.6-49.0) L 12/09/23 03:03 Plt Count 147 thou/uL (152-406) L 12/09/23 03:03 PT 14.1 SECONDS (9.5-12.5) H 12/07/23 13:02 INR 1.29 12/07/23 13:02 Sodium 138 mEq/L (136-145) 12/09/23 03:03 Potassium 4.4 mEq/L (3.5-5.1) 12/09/23 03:03 BUN 25 mg/dL (7-18) H 12/09/23 03:03 Creatinine 1.38 mg/dL (0.70-1.30) H 12/09/23 03:03 Glucose 216 mg/dL (74-106) H 12/09/23 03:03 Phosphorus 3.6 mg/dL (2.5-4.9) 12/09/23 03:03 Magnesium 2.2 mg/dL (1.6-2.4) 12/09/23 03:03 Total Bilirubin 0.5 mg/dL (0.2-1.0) 12/07/23 13:02 AST 27 U/L (15-37) 12/07/23 13:02 ALT 36 U/L (16-61) 12/07/23 13:02 Alkaline Phosphatase 75 U/L (45-117) 12/07/23 13:02 Triglycerides 75 mg/dL (<150) 12/08/23 05:12 Cholesterol 129 mg/dL (<200) 12/08/23 05:12 HDL Cholesterol 40 mg/dL (40-60) 12/08/23 05:12 Cholesterol/HDL Ratio 3.23 12/08/23 05:12 Home Medications: Metformin HCl [Glucophage*] 500 mg PO BIDWM 12/07/23 Amox/Clavulanate [Augmentin 875-125 Tab] 1 each PO BID 10 Days #20 tab 12/09/23 New Medications: Amox/Clavulanate [Augmentin 875-125 Tab] 1 each PO BID 10 Days #20 tab Physician Discharge Instructions: Continue ad lacy activity. take Augmentin 875/125mg po BID for 10 days. Continue metformin. Follow up with Dr. Mcallister in clinic within 1 week. Followup with PCP in 2 weeks. Diet: AHA Activity: Ad lacy Followup: Ruthie Mcallister MD [Primary Care Provider] -
--- NOTE | 2023-12-09 10:39 | PN ---
Date of Progress Note: 12/09/2023 Subjective: The patient is awake, alert. No complaint. Vitals stable, afebrile. Gram stain review ed. Dressing is clean, dry, intact. The patient also had abdominal pain, and CAT scan of the abdome n and pelvis essentially showed moderate amount of stool burden. The patient was given stool softene rs for that. Clinically, he is ready to be discharged. Objective: Vital Signs: Stable, afebrile. Skin: Dressing clean, dry, intact. Assessment: Status post debridement of infected left foot wound. Recommendations: The patient will be discharged home on Augmentin and pain medicine, dressing as ord ered. [facility], and high-fiber diet and stool softener should suffice f or his abdominal issues. HUMA/MARTHAL Voice ID: [id number] Report ID: [id number]
[2023-12-09] MEDS: PIPER TAZO 3.375 GM in NA CHLORIDE 0.9% 100 ML IV SCH (11:00)
[2023-12-09 11:39] VITALS: O2SAT 99
[2023-12-09 12:17] VITALS: BP 166/79; TEMP 97.9
--- NOTE | 2023-12-11 15:13 | EKG ---
Test Date: 2023-12-07 Test Time: 13:14:17 Putty And Patch Worker: MEASUREMENT RESULTS: Intervals: Rate: 87 DE: 126 QRSD: 76 QT: 374 QTc: 450 [place]: P: 85 DE: 126 QRS: 80 T: 76 INTERPRETIVE STATEMENTS: Normal sinus rhythm Left ventricular hypertrophy with repolarization abnormality Abnormal ECG No previous ECG available for comparison Electronically Signed On 12-11-23 15:03:30 ASSOCIATE PRINCIPAL by Joce Shay
== END 2023-12-09 12:18 | disposition home or self-care (01) | DRG 42 ==
LOC: ER 12:31 → SUPCPDRO 12:31 → 2ND 17:24
PROVIDERS: ADMIT Hospitalist; ATTEND Hospitalist
PROC: 0JBR0ZZ Excision of Left Foot Subcutaneous Tissue and Fascia, Open Approach (ICD-10-PCS; principal; 2023-12-08 13:00)
DX: E11.610 Type 2 diabetes mellitus with diabetic neuropathic arthropathy (principal); E11.621 Type 2 diabetes mellitus with foot ulcer; L97.523 Non-pressure chronic ulcer of other part of left foot with necrosis of muscle; K59.00 Constipation, unspecified; D64.9 Anemia, unspecified; F17.219 Nicotine dependence, cigarettes, with unspecified nicotine-induced disorders; Z79.84 Long term (current) use of oral hypoglycemic drugs; Z28.310 Unvaccinated for COVID-19
CPT/HCPCS: 36415; 71045; 74177; 80048; 80061; 80076; 81001; 82947; 83036; 83605; 83735; 83880; 84100; 84439; 84443; 84484; 85025; 85610; 86140; 87040; 87075; 87205; 88304; 90471; 93005; 97116; 97161; J1100; J1650; J2001; J2250; J2405; J2543; J2704; J3010; J3475; J3590; J7030; J7040; J7050; Q9967